=== PATIENT | female | born 1940 | race Two or more races ===

== ENCOUNTER → 2020-09-21 18:43 | Outpatient (CLI) | payer MEDICARE, MEDICAID ==
[2020-09-21 19:20] LABS: BASOPHILS 1.4 % (0-2); EOSINOPHILS 5.3 % (0-7); HEMATOCRIT 29.6 % (36.0-48.0); HEMOGLOBIN 9.5 g/dL (12-16); LYMPHOCYTES 17.3 % (15-50); MCH 31.1 pg (26.0-34.0); MCHC 32.1 g/dL (31.0-37.0); MCV 96.9 fL (80.0-100.0); MEAN PLATELET VOLUME 6.9 fL (7.4-10.4); PLATELET COUNT 508 10x3/uL (130-400); RBC 3.06 10x6/uL (4.00-5.40); WBC 5.6 10x3/uL (4.8-10.8)
[2020-09-21 19:53] LABS: ALBUMIN 3.5 g/dL (3.4-5.0); BILIRUBIN - TOTAL 0.34 mg/dL (0.2-1.3); CALCIUM 8.8 mg/dL (8.5-10.1); CARBON DIOXIDE 25.7 mmol/L (21.0-32.0); CHOL - HDL RATIO 2.7 ratio (2.3-4.1); CREATININE - SERUM 0.9 mg/dL (0.6-1.3); LDL-HDL RATIO 1.4 ratio (1.5-3.5); POTASSIUM - SERUM 4.7 mmol/L (3.5-5.1); PROTEIN - SERUM 6.5 g/dL (6.4-8.2)
== END | disposition home or self-care (01) ==
LOC: D.LABREF 18:43
PROVIDERS: ATTEND Family Medicine
DX: S72.91XD Unspecified fracture of right femur, subsequent encounter for closed fracture with routine healing (principal); M13.80 Other specified arthritis, unspecified site; C79.81 Secondary malignant neoplasm of breast; R29.6 Repeated falls